=== PATIENT | female | born 1965 | race Caucasian/White ===

== ENCOUNTER 2018-04-27 00:08 | Emergency (ER) | payer MEDICARE ==
[~2018-04-27] VITALS: Ht 147.3 cm; Wt 42.0 kg
[~2018-04-27 00:08] MED LIST: PEPTO BISMOL
[2018-04-27] MEDS ORDERED: LEFL10TA15 PO (00:19)
[2018-04-27] MEDS ORDERED: OMEP20 PO (00:19)
[2018-04-27] MEDS ORDERED: LISI-660 PO (00:19)
[2018-04-27] MEDS ORDERED: FERR-89 PO (00:19)
[2018-04-27] MEDS ORDERED: CALC-1085 PO (00:19)
[2018-04-27] MEDS ORDERED: METF500T6 PO (00:19)
[2018-04-27] MEDS ORDERED: HYDR200T4 PO (00:19)
[2018-04-27 00:24] LABS: GLUCOSE,POINT OF CARE 78 MG/DL (70-110)
[2018-04-27 01:06] LABS: ANION GAP 11 mmol/L (8-16); BASOPHILS % (AUTO) 1.2 % (0.0-2.0); CALCIUM, TOTAL 9.4 mg/dL (8.8-10.5); CARBON DIOXIDE 24 mmol/L (22-29); CHLORIDE 104 mmol/L (98-107); CREATININE 0.67 mg/dL (0.60-1.30); EOSINOPHILS % (AUTO) 3.9 % (1.0-6.0); GLOMERULAR FILTR. RATE CALC > 60 mL/min (>60); GLUCOSE,RANDOM 91 mg/dL (70-110); HEMATOCRIT 30.7 % (36-46); HEMOGLOBIN 10.3 g/dL (12.0-16.0); LYMPHOCYTES # (AUTO) 1.4 K/uL (1.0-4.8); LYMPHOCYTES % (AUTO) 25.8 % (22.0-44.0); MEAN CORPUSCULAR HEMOGLOBIN 31.6 pg (26.0-34.0); MEAN CORPUSCULAR HGB CONC 33.4 G/dL (31.0-37.0); MEAN CORPUSCULAR VOLUME 95 fL (80-100); MONOCYTES # (AUTO) 0.7 K/uL (0.1-1.0); MONOCYTES % (AUTO) 11.8 % (2.0-9.0); NEUTROPHILS # (AUTO) 3.2 K/uL (1.8-7.7); NEUTROPHILS % (AUTO) 57.3 % (40.0-70.0); PLATELET COUNT (AUTO) 324 K/uL (150-450); POTASSIUM 4.1 mmol/L (3.5-5.1); RED BLOOD CELL COUNT(AUTO) 3.25 MIL/uL (4.00-5.20); RED CELL DISTRIBUTION WIDTH 12.4 % (11.5-14.5); SODIUM SERUM 139 mmol/L (136-145); UREA NITROGEN, BLOOD 11 mg/dL (7-18)
[2018-04-27 01:12] LABS: ALANINE AMINOTRANSFERASE 12 U/L (12-78); ALBUMIN 3.4 g/dL (3.4-5.0); ALKALINE PHOSPHATASE 63 U/L (46-116); ASPARTATE AMINOTRANSFERASE 15 U/L (15-37); BILIRUBIN,TOTAL 0.2 mg/dL (0.1-1.0); TOTAL PROTEIN, SERUM 8.2 g/dL (6.4-8.2)
[2018-04-27 01:17] LABS: PROTHROMBIN TIME 10.2 SEC (9.4-11.6)
[2018-04-27 03:06] LABS: HEMATOCRIT 27.3 % (36-46); HEMOGLOBIN 9.4 g/dL (12.0-16.0)
[2018-04-27 03:31] VITALS: BP 97/61
== END 2018-04-27 04:19 | disposition home or self-care (01) ==
LOC: EMS 00:09
DX: D64.9 Anemia, unspecified (principal); M19.90 Unspecified osteoarthritis, unspecified site; E11.9 Type 2 diabetes mellitus without complications; Z79.899 Other long term (current) drug therapy; Z79.84 Long term (current) use of oral hypoglycemic drugs
CPT/HCPCS: 85014; 85018; 86850; 86900; 86901; 99284

== ENCOUNTER → 2020-12-28 | Outpatient (CLI) | payer MEDICARE ==
[~2020-12-28] MED LIST changes: +BARIUM SULFATE 0.1% SUSPENSION 450 ML BOTTLE ONE; +CALC-1085 PO; +FERR-89 PO; +HYDR200T4 PO; +IOVERSOL 350 MG/ML 100 ML VIAL ONE; +LEFL10TA15 PO; +LISI-892 PO; +METF-960 PO; +OMEP20 PO; -PEPTO BISMOL; +SODIUM CHLORIDE 0.9% 100 ML ONE
== END | disposition home or self-care (01) ==
LOC: RADPV 14:39
PROVIDERS: ATTEND Podiatrist Foot & Ankle Surgery
DX: M20.41 Other hammer toe(s) (acquired), right foot (principal); M20.42 Other hammer toe(s) (acquired), left foot; R60.0 Localized edema; M77.32 Calcaneal spur, left foot; M12.871 Other specific arthropathies, not elsewhere classified, right ankle and foot; M85.871 Other specified disorders of bone density and structure, right ankle and foot; M85.872 Other specified disorders of bone density and structure, left ankle and foot

== ENCOUNTER 2021-07-20 05:41 | Day surgery (SDC) | payer MEDICARE ==
[~2021-07-20] VITALS: Ht 144.8 cm; Wt 40.9 kg
[~2021-07-20 05:41] MED LIST changes: -BARIUM SULFATE 0.1% SUSPENSION 450 ML BOTTLE ONE; +HYDR200T38 PO; -HYDR200T4 PO; -IOVERSOL 350 MG/ML 100 ML VIAL ONE; -LEFL10TA15 PO; +LEFL10TA19 PO; +METF-1211 PO; -METF-960 PO; +RINGERS SOLUTION,LACTATED 1,000 ML IV ONE; -SODIUM CHLORIDE 0.9% 100 ML ONE
[2021-07-20] MEDS ORDERED: FentaNYL CITRATE PF 100 MCG/2 ML VIAL IVP ONE (05:42)
[2021-07-20] MEDS ORDERED: 0.9% SODIUM CHLORIDE 10 ML VIAL IVP ONE (05:42)
[2021-07-20] MEDS ORDERED: KETAMINE HCL 50 MG/ML 10 ML VIAL IVP ONE (05:42)
[2021-07-20] MEDS ORDERED: ONDANSETRON HCL 4 MG/2 ML VIAL IVP ONE (05:42)
[2021-07-20] MEDS ORDERED: MIDAZOLAM HCL 2 MG/2 ML VIAL IVP ONE (05:42)
[2021-07-20] MEDS ORDERED: PROPOFOL 1% 20 ML VIAL IVP ONE (05:42)
[2021-07-20 06:04] LABS: COVID AG,FIA SOURCE NASOPHARYNGEAL
[2021-07-20 06:48] LABS: GLUCOMETER DEV NAME(LOC) SDS.; GLUCOSE,POINT OF CARE 89 MG/DL (70-110)
[2021-07-20] MEDS ORDERED: LIDOCAINE 1% 20 ML VIAL PERC ONE (07:00)
[2021-07-20] MEDS ORDERED: BUPIVACAINE HCL/PF 0.5% 30 ML VIAL PERC ONE (07:00)
[2021-07-20] MEDS ORDERED: HYDROmorphone 2 MG/ML VIAL IVP PRN (07:45)
[2021-07-20] MEDS ORDERED: FentaNYL CITRATE PF 100 MCG/2 ML VIAL IVP PRN (07:45)
[2021-07-20] MEDS ORDERED: MEPERIDINE-PF 25 MG/ML VIAL IVP PRN (07:45)
[2021-07-20] MEDS ORDERED: OXYGEN THERAPY IH SCH (08:00)
[2021-07-20] MEDS ORDERED: DEXAMETHASONE SOD PHOS 4 MG/ML VIAL IVP ONE (08:55)
== END 2021-07-20 10:12 | disposition home or self-care (01) ==
LOC: SURGERY 05:41
PROVIDERS: ATTEND Podiatrist Foot & Ankle Surgery
DX: M20.41 Other hammer toe(s) (acquired), right foot (principal); E11.9 Type 2 diabetes mellitus without complications; D64.9 Anemia, unspecified; Z79.899 Other long term (current) drug therapy; Z98.890 Other specified postprocedural states
CPT/HCPCS: 28285 ×4; 73630; 82962; 87426; C1713; C9803; J0690; J1100; J2250; J2405; J2704; J3010; J3490 ×3; J7120

== ENCOUNTER → 2021-10-11 | Outpatient (CLI) | payer MEDICARE ==
[~2021-10-11] MED LIST changes: -RINGERS SOLUTION,LACTATED 1,000 ML IV ONE
== END | disposition still patient (30) ==
LOC: RADPV 14:04
PROVIDERS: ATTEND Podiatrist Foot & Ankle Surgery
DX: S92.341A Displaced fracture of fourth metatarsal bone, right foot, initial encounter for closed fracture (principal); S92.351A Displaced fracture of fifth metatarsal bone, right foot, initial encounter for closed fracture; M20.42 Other hammer toe(s) (acquired), left foot; M19.071 Primary osteoarthritis, right ankle and foot; M19.072 Primary osteoarthritis, left ankle and foot; M25.474 Effusion, right foot; M77.31 Calcaneal spur, right foot; X58.XXXA Exposure to other specified factors, initial encounter; Y93.89 Activity, other specified; Y92.89 Other specified places as the place of occurrence of the external cause; Y99.8 Other external cause status

== ENCOUNTER 2022-03-25 18:55 | Inpatient (IN) | payer MEDICARE ==
[~2022-03-25] VITALS: Ht 142.2 cm; Wt 42.5 kg
[~2022-03-25 18:55] MED LIST changes: -FERR-89 PO; +FERR325T27 PO
[2022-03-25] MEDS ORDERED: SODIUM CHLORIDE 0.9% 1,000 ML IV ONE (19:30)
[2022-03-25] MEDS ORDERED: ONDANSETRON HCL 4 MG/2 ML VIAL IVP ONE ×2 (19:30→20:00)
[2022-03-25] MEDS: MORPHINE SULFATE 4 MG/ML SYRINGE IVP ONE ×2 (20:00→21:21)
[2022-03-25] MEDS ORDERED: SODIUM CHLORIDE 0.9% 1,200 ML IV ONE (20:00)
[2022-03-25 20:36] LABS: BASOPHILS % (AUTO) 0.1 % (0.0-2.0); EOSINOPHILS % (AUTO) 0.6 % (1.0-6.0); HEMATOCRIT 33.5 % (36-46); HEMOGLOBIN 11.5 g/dL (12.0-16.0); LYMPHOCYTES # (AUTO) 0.4 K/uL (1.0-4.8); LYMPHOCYTES % (AUTO) 3.7 % (22.0-44.0); MEAN CORPUSCULAR HEMOGLOBIN 32.7 pg (26.0-34.0); MEAN CORPUSCULAR HGB CONC 34.2 G/dL (31.0-37.0); MEAN CORPUSCULAR VOLUME 96 fL (80-100); MONOCYTES # (AUTO) 1.1 K/uL (0.1-1.0); NEUTROPHILS # (AUTO) 8.2 K/uL (1.8-7.7); NEUTROPHILS % (AUTO) 84.6 % (40.0-70.0); PLATELET COUNT (AUTO) 230 K/uL (150-450)
[2022-03-25 20:44] LABS: ANION GAP 12 mmol/L (8-16); CALCIUM, TOTAL 9.5 mg/dL (8.8-10.5); CARBON DIOXIDE 25 mmol/L (22-29); CHLORIDE 104 mmol/L (98-107); CREATININE 0.67 mg/dL (0.60-1.30); GLUCOSE,RANDOM 201 mg/dL (70-110); POTASSIUM 3.7 mmol/L (3.5-5.1); SODIUM SERUM 141 mmol/L (136-145); UREA NITROGEN, BLOOD 22 mg/dL (7-18)
[2022-03-25 20:45] LABS: GLOMERULAR FILTR. RATE CALC > 60 mL/min (>60)
[2022-03-25 20:49] LABS: COVID AG,FIA SOURCE NASOPHARYNGEAL
[2022-03-25 20:50] LABS: ALANINE AMINOTRANSFERASE 21 U/L (12-78); ALBUMIN 3.9 g/dL (3.4-5.0); ALKALINE PHOSPHATASE 54 U/L (46-116); ASPARTATE AMINOTRANSFERASE 14 U/L (15-37); BILIRUBIN,TOTAL 0.5 mg/dL (0.1-1.0); LIPASE 73 U/L (73-393); TOTAL PROTEIN, SERUM 8.2 g/dL (6.4-8.2)
[2022-03-25 20:54] LABS: LACTIC ACID 2.6 mmol/L (0.4-2.0)
[2022-03-25 21:08] LABS: INFLUENZA TYPE A NEGATIVE FOR TYPE A (NEGATIVE); INFLUENZA TYPE B NEGATIVE FOR TYPE B (NEGATIVE)
[2022-03-25] MEDS ORDERED: ONDANSETRON HCL 4 MG/2 ML VIAL IVP PRN (21:15)
[2022-03-25] MEDS ORDERED: ACETAMINOPHEN 325 MG TABLET PO PRN (21:15)
[2022-03-25] MEDS ORDERED: DIAZEPAM 5 MG/ML 2 ML SYRINGE IVP ONE (21:15)
[2022-03-25] MEDS ORDERED: MORPHINE SULFATE 2 MG/ML SYRINGE IVP PRN (21:15)
[2022-03-25] MEDS ORDERED: DEXTROSE 50%-WATER 25 GM/50 ML SYRINGE IVP PRN (21:45)
[2022-03-25] MEDS ORDERED: INSULIN GLARGINE,HUM.REC.ANLOG 100 UNITS/ML SQ SCH (21:45)
[2022-03-25] MEDS ORDERED: IOHEXOL 350 MG/ML 100 ML VIAL ONE (21:49)
[2022-03-25] MEDS ORDERED: SODIUM CHLORIDE 0.9% 100 ML ONE (21:49)
[2022-03-25 22:02] LABS: HEMOGLOBIN A1C 6.2 % (3.8-5.6)
[2022-03-26] MEDS: PIPERACILLIN/TAZO 3.375 GM/D5W 50 ML IV SCH ×3 (00:17→11:59)
[2022-03-26 00:32] LABS: APPEARANCE,URINE CLEAR (CLEAR); BILIRUBIN,URINE NEGATIVE (NEGATIVE); GLUCOSE, URINE (UA) NEGATIVE (NEGATIVE); KETONES,URINE TRACE mg/dL (NEGATIVE); LEUKOCYTE ESTERASE ,URINE NEGATIVE (NEGATIVE); NITRATE,URINE NEGATIVE (NEGATIVE); OCCULT BLOOD,URINE NEGATIVE (NEGATIVE); PH,URINE 7.5 (5.0-8.0); PROTEIN,URINE NEGATIVE (NEGATIVE); SPECIFIC GRAVITIY, URINE 1.028 (1.003-1.030); UROBILINOGEN,URINE <=1.0 mg/dL (<=1.0)
[2022-03-26 00:41] LABS: BACTERIA,URINE None Seen /HPF (None Seen); RBC,URINE None Seen /HPF (0-2); WBC,URINE None Seen /HPF (0-5)
[2022-03-26 00:58] VITALS: BP 108/58
[2022-03-26] MEDS: RINGERS SOLUTION,LACTATED 1,000 ML IV SCH ×2 (05:04→17:40)
[2022-03-26 05:09] VITALS: BP 108/67
[2022-03-26 07:05] VITALS: BP 110/59
[2022-03-26] MEDS ORDERED: FERROUS SULFATE 325 MG EC TABLET PO SCH (08:00)
[2022-03-26 08:37] LABS: GLUCOMETER DEV NAME(LOC) 5N.1C; GLUCOSE,POINT OF CARE 115 MG/DL (70-110)
[2022-03-26] MEDS ORDERED: HYDROXYCHLOROQUINE SULFATE 200 MG TABLET PO SCH (09:00)
[2022-03-26] MEDS ORDERED: OMEPRAZOLE 20 MG CAPSULE PO SCH (09:00)
[2022-03-26] MEDS ORDERED: LISINOPRIL 5 MG TABLET PO SCH (09:00)
[2022-03-26] MEDS ORDERED: LEFLUNOMIDE 10 MG TABLET PO SCH (09:00)
[2022-03-26 09:40] LABS: ANION GAP 10 mmol/L (8-16); CALCIUM, TOTAL 8.1 mg/dL (8.8-10.5); CARBON DIOXIDE 24 mmol/L (22-29); CHLORIDE 109 mmol/L (98-107); CREATININE 0.66 mg/dL (0.60-1.30); GLUCOSE,RANDOM 93 mg/dL (70-110); POTASSIUM 3.6 mmol/L (3.5-5.1); SODIUM SERUM 143 mmol/L (136-145); UREA NITROGEN, BLOOD 13 mg/dL (7-18)
[2022-03-26 09:44] LABS: GLOMERULAR FILTR. RATE CALC > 60 mL/min (>60)
[2022-03-26 11:12] VITALS: BP 122/77
[2022-03-26 11:46] LABS: GLUCOMETER DEV NAME(LOC) 5S.2B; GLUCOSE,POINT OF CARE 68 MG/DL (70-110)
[2022-03-26] MEDS ORDERED: DOXYCYCLINE HYCLATE 100 MG TABLET PO SCH (13:15)
[2022-03-26] MEDS: AZITHROMYCIN 500 MG TABLET PO SCH (14:47)
[2022-03-26 15:02] LABS: C-REACTIVE PROTEIN QUANT 6.94 mg/dL (0.00-0.30); FERRITIN 247 ng/mL (8-252)
[2022-03-26 15:39] VITALS: BP 118/68
[2022-03-26 17:46] LABS: GLUCOMETER DEV NAME(LOC) 5S.1B; GLUCOSE,POINT OF CARE 119 MG/DL (70-110)
[2022-03-26] MEDS ORDERED: CefTRIAXone 1 GM/DEXTROSE 50 ML IV SCH (18:00)
[2022-03-26] MEDS ORDERED: SODIUM CHLORIDE 0.9% 250 ML IV ONE (18:05)
[2022-03-26] MEDS: CefoTEtan DISOD 2 GM/DEXTROSE 50 ML IV SCH (18:10)
[2022-03-26 20:05] VITALS: BP 119/69
[2022-03-26] MEDS: INSULIN LISPRO 100 UNITS/ML SQ PRN (20:22)
[2022-03-26] MEDS: OMEPRAZOLE 20 MG CAPSULE PO SCH (20:23)
[2022-03-26] MEDS: CHOLECALCIFEROL (VIT D3) 400 UNITS [10 MCG] TABLET PO SCH (20:23)
[2022-03-26] MEDS: LATANOPROST 0.005% 2.5 ML OPHTHALMIC SOLUTION OS SCH (20:23)
[2022-03-26] MEDS: DORZOLAMIDE/TIMOLOL 2-0.5% [22.3-6.8MG/ML] 10 ML OPHTHALMIC SOLUTION OS SCH (20:23)
[2022-03-26] MEDS: CALCIUM CARBONATE 500 MG TABLET PO SCH (20:23)
[2022-03-26] MEDS: HEPARIN SODIUM,PORCINE 5,000 UNITS/ML VIAL SQ SCH (23:43)
[2022-03-27] VITALS (7 sets, daily range): BP systolic 111–142; BP diastolic 57–84
[2022-03-27] MEDS: RINGERS SOLUTION,LACTATED 1,000 ML IV SCH ×3 (07:00→21:00)
[2022-03-27] MEDS: HEPARIN SODIUM,PORCINE 5,000 UNITS/ML VIAL SQ SCH ×2 (08:00→16:00)
[2022-03-27] MEDS: CefoTEtan DISOD 2 GM/DEXTROSE 50 ML IV SCH ×2 (08:07→18:00)
[2022-03-27 08:16] LABS: GLUCOMETER DEV NAME(LOC) 5N.1C; GLUCOSE,POINT OF CARE 88 MG/DL (70-110)
[2022-03-27 08:16] LABS: GLUCOMETER DEV NAME(LOC) 5S.2B; GLUCOSE,POINT OF CARE 252 MG/DL (70-110)
[2022-03-27] MEDS: AZITHROMYCIN 500 MG TABLET PO SCH (09:00)
[2022-03-27] MEDS: OMEPRAZOLE 20 MG CAPSULE PO SCH ×2 (09:00→21:02)
[2022-03-27] MEDS: PredniSONE 5 MG TABLET PO SCH (09:00)
[2022-03-27] MEDS: DORZOLAMIDE/TIMOLOL 2-0.5% [22.3-6.8MG/ML] 10 ML OPHTHALMIC SOLUTION OS SCH ×2 (09:00→21:00)
[2022-03-27] MEDS: CALCIUM CARBONATE 500 MG TABLET PO SCH ×2 (09:00→21:02)
[2022-03-27] MEDS: CHOLECALCIFEROL (VIT D3) 400 UNITS [10 MCG] TABLET PO SCH ×2 (09:00→21:02)
[2022-03-27] MEDS: FOLIC ACID 1 MG TABLET PO SCH (09:00)
[2022-03-27 11:21] LABS: GLUCOMETER DEV NAME(LOC) 5S.1B; GLUCOSE,POINT OF CARE 173 MG/DL (70-110)
[2022-03-27] MEDS: INSULIN LISPRO 100 UNITS/ML SQ PRN ×2 (12:21→20:57)
[2022-03-27 17:31] LABS: GLUCOMETER DEV NAME(LOC) 5N.3; GLUCOSE,POINT OF CARE 122 MG/DL (70-110)
[2022-03-27 17:46] LABS: GLUCOMETER DEV NAME(LOC) 5S.2B; GLUCOSE,POINT OF CARE 174 MG/DL (70-110)
[2022-03-27] MEDS: LATANOPROST 0.005% 2.5 ML OPHTHALMIC SOLUTION OS SCH (21:00)
[2022-03-27 22:26] LABS: GLUCOMETER DEV NAME(LOC) 5N.1C; GLUCOSE,POINT OF CARE 77 MG/DL (70-110)
[2022-03-28] MEDS: HEPARIN SODIUM,PORCINE 5,000 UNITS/ML VIAL SQ SCH ×3 (01:15→16:13)
[2022-03-28 04:35] VITALS: BP 132/71
[2022-03-28] MEDS: CefoTEtan DISOD 2 GM/DEXTROSE 50 ML IV SCH (06:00)
[2022-03-28] MEDS: RINGERS SOLUTION,LACTATED 1,000 ML IV SCH ×3 (06:07→23:52)
[2022-03-28 08:33] VITALS: BP 134/72
[2022-03-28] MEDS: FOLIC ACID 1 MG TABLET PO SCH (08:56)
[2022-03-28] MEDS: AZITHROMYCIN 500 MG TABLET PO SCH (08:57)
[2022-03-28] MEDS: CALCIUM CARBONATE 500 MG TABLET PO SCH ×2 (08:57→20:15)
[2022-03-28] MEDS: OMEPRAZOLE 20 MG CAPSULE PO SCH ×2 (08:57→20:15)
[2022-03-28] MEDS: CHOLECALCIFEROL (VIT D3) 400 UNITS [10 MCG] TABLET PO SCH ×2 (08:57→20:15)
[2022-03-28] MEDS: PredniSONE 5 MG TABLET PO SCH (08:57)
[2022-03-28] MEDS: DORZOLAMIDE/TIMOLOL 2-0.5% [22.3-6.8MG/ML] 10 ML OPHTHALMIC SOLUTION OS SCH ×2 (09:45→20:16)
[2022-03-28 11:27] VITALS: BP 127/102
[2022-03-28] MEDS: INSULIN LISPRO 100 UNITS/ML SQ PRN ×2 (11:29→20:36)
[2022-03-28 14:20] LABS: BASOPHILS % (AUTO) 0.3 % (0.0-2.0); EOSINOPHILS % (AUTO) 1.7 % (1.0-6.0); HEMATOCRIT 31.1 % (36-46); HEMOGLOBIN 10.5 g/dL (12.0-16.0); LYMPHOCYTES # (AUTO) 0.4 K/uL (1.0-4.8); LYMPHOCYTES % (AUTO) 9.2 % (22.0-44.0); MEAN CORPUSCULAR HGB CONC 33.9 G/dL (31.0-37.0); MEAN CORPUSCULAR VOLUME 97 fL (80-100); MONOCYTES # (AUTO) 0.3 K/uL (0.1-1.0); MONOCYTES % (AUTO) 6.7 % (2.0-9.0); NEUTROPHILS # (AUTO) 3.2 K/uL (1.8-7.7); NEUTROPHILS % (AUTO) 82.1 % (40.0-70.0); PLATELET COUNT (AUTO) 222 K/uL (150-450); RED BLOOD CELL COUNT(AUTO) 3.19 MIL/uL (4.00-5.20); RED CELL DISTRIBUTION WIDTH 14.5 % (11.5-14.5)
[2022-03-28 14:39] LABS: ALANINE AMINOTRANSFERASE 22 U/L (12-78); ALBUMIN 3.2 g/dL (3.4-5.0); ALKALINE PHOSPHATASE 55 U/L (46-116); ANION GAP 11 mmol/L (8-16); ASPARTATE AMINOTRANSFERASE 15 U/L (15-37); BILIRUBIN,TOTAL 0.2 mg/dL (0.1-1.0); C-REACTIVE PROTEIN QUANT 1.98 mg/dL (0.00-0.30); CARBON DIOXIDE 24 mmol/L (22-29); CHLORIDE 107 mmol/L (98-107); CREATINE KINASE, TOTAL ONLY 39 U/L (26-192); CREATININE 0.54 mg/dL (0.60-1.30); GLUCOSE,RANDOM 195 mg/dL (70-110); SODIUM SERUM 142 mmol/L (136-145); TOTAL PROTEIN, SERUM 7.6 g/dL (6.4-8.2); UREA NITROGEN, BLOOD 11 mg/dL (7-18)
[2022-03-28 14:43] LABS: GLOMERULAR FILTR. RATE CALC > 60 mL/min (>60)
[2022-03-28 15:59] VITALS: BP 141/92
[2022-03-28 19:16] LABS: GLUCOMETER DEV NAME(LOC) 5S.2B; GLUCOSE,POINT OF CARE 103 MG/DL (70-110)
[2022-03-28 19:16] LABS: GLUCOMETER DEV NAME(LOC) 5S.2B; GLUCOSE,POINT OF CARE 238 MG/DL (70-110)
[2022-03-28 19:16] LABS: GLUCOMETER DEV NAME(LOC) 5S.2B; GLUCOSE,POINT OF CARE 190 MG/DL (70-110)
[2022-03-28] MEDS: LATANOPROST 0.005% 2.5 ML OPHTHALMIC SOLUTION OS SCH (20:16)
[2022-03-28 20:34] VITALS: BP 142/79
[2022-03-28 23:43] VITALS: BP 140/75
[2022-03-29] MEDS: HEPARIN SODIUM,PORCINE 5,000 UNITS/ML VIAL SQ SCH ×4 (01:07→15:48)
[2022-03-29 04:45] VITALS: BP 135/77
[2022-03-29 06:01] LABS: GLUCOMETER DEV NAME(LOC) 5N.1C; GLUCOSE,POINT OF CARE 228 MG/DL (70-110)
[2022-03-29 06:01] LABS: GLUCOMETER DEV NAME(LOC) 5N.1C; GLUCOSE,POINT OF CARE 86 MG/DL (70-110)
[2022-03-29 06:22] LABS: GLUCOMETER DEV NAME(LOC) 5N.3; GLUCOSE,POINT OF CARE 101 MG/DL (70-110)
[2022-03-29] MEDS: FOLIC ACID 1 MG TABLET PO SCH (07:56)
[2022-03-29] MEDS: CHOLECALCIFEROL (VIT D3) 400 UNITS [10 MCG] TABLET PO SCH ×2 (07:56→20:05)
[2022-03-29] MEDS: OMEPRAZOLE 20 MG CAPSULE PO SCH ×2 (07:56→20:03)
[2022-03-29] MEDS: PredniSONE 5 MG TABLET PO SCH (07:56)
[2022-03-29] MEDS: CALCIUM CARBONATE 500 MG TABLET PO SCH ×2 (07:56→20:04)
[2022-03-29] MEDS: AZITHROMYCIN 500 MG TABLET PO SCH (07:56)
[2022-03-29] MEDS: DORZOLAMIDE/TIMOLOL 2-0.5% [22.3-6.8MG/ML] 10 ML OPHTHALMIC SOLUTION OS SCH ×2 (07:57→20:05)
[2022-03-29 08:00] VITALS: BP 147/98
[2022-03-29 11:45] VITALS: BP 117/71
[2022-03-29] MEDS: RINGERS SOLUTION,LACTATED 1,000 ML IV SCH ×2 (11:46→23:00)
[2022-03-29 15:06] LABS: GLUCOMETER DEV NAME(LOC) 5S.2B; GLUCOSE,POINT OF CARE 170 MG/DL (70-110)
[2022-03-29] MEDS: MetroNIDAZOLE 500 MG TABLET PO SCH ×2 (15:47→20:03)
[2022-03-29 16:00] VITALS: BP 124/77
[2022-03-29] MEDS: INSULIN LISPRO 100 UNITS/ML SQ PRN (17:28)
[2022-03-29 19:27] VITALS: BP 118/73
[2022-03-29] MEDS: LATANOPROST 0.005% 2.5 ML OPHTHALMIC SOLUTION OS SCH (20:06)
[2022-03-29 22:01] LABS: GLUCOMETER DEV NAME(LOC) 5S.2B; GLUCOSE,POINT OF CARE 198 MG/DL (70-110)
[2022-03-29 23:55] VITALS: BP 103/54
[2022-03-30] MEDS: HEPARIN SODIUM,PORCINE 5,000 UNITS/ML VIAL SQ SCH ×4 (00:04→16:12)
[2022-03-30 04:18] VITALS: BP 118/48
[2022-03-30 06:31] LABS: GLUCOMETER DEV NAME(LOC) 5S.1B; GLUCOSE,POINT OF CARE 100 MG/DL (70-110)
[2022-03-30 07:35] VITALS: BP 104/61
[2022-03-30] MEDS: RINGERS SOLUTION,LACTATED 1,000 ML IV SCH ×2 (08:52→17:56)
[2022-03-30] MEDS: DORZOLAMIDE/TIMOLOL 2-0.5% [22.3-6.8MG/ML] 10 ML OPHTHALMIC SOLUTION OS SCH ×2 (08:52→21:20)
[2022-03-30] MEDS: MetroNIDAZOLE 500 MG TABLET PO SCH ×3 (08:53→21:12)
[2022-03-30] MEDS: AZITHROMYCIN 500 MG TABLET PO SCH (08:53)
[2022-03-30] MEDS: OMEPRAZOLE 20 MG CAPSULE PO SCH ×2 (08:53→21:11)
[2022-03-30] MEDS: PredniSONE 5 MG TABLET PO SCH (08:53)
[2022-03-30] MEDS: FOLIC ACID 1 MG TABLET PO SCH (08:53)
[2022-03-30] MEDS: CALCIUM CARBONATE 500 MG TABLET PO SCH ×2 (08:53→21:12)
[2022-03-30] MEDS: CHOLECALCIFEROL (VIT D3) 400 UNITS [10 MCG] TABLET PO SCH ×2 (08:53→21:12)
[2022-03-30 11:07] VITALS: BP 114/69
[2022-03-30] MEDS: INSULIN LISPRO 100 UNITS/ML SQ PRN (12:19)
[2022-03-30 14:47] LABS: GLUCOMETER DEV NAME(LOC) 5N.1C; GLUCOSE,POINT OF CARE 225 MG/DL (70-110)
[2022-03-30 16:05] VITALS: BP 121/76
[2022-03-30] MEDS: LATANOPROST 0.005% 2.5 ML OPHTHALMIC SOLUTION OS SCH (21:20)
[2022-03-31] MEDS: HEPARIN SODIUM,PORCINE 5,000 UNITS/ML VIAL SQ SCH ×3 (00:59→08:18)
[2022-03-31] MEDS: FOLIC ACID 1 MG TABLET PO SCH (08:16)
[2022-03-31] MEDS: CALCIUM CARBONATE 500 MG TABLET PO SCH (08:17)
[2022-03-31] MEDS: OMEPRAZOLE 20 MG CAPSULE PO SCH (08:17)
[2022-03-31] MEDS: CHOLECALCIFEROL (VIT D3) 400 UNITS [10 MCG] TABLET PO SCH (08:17)
[2022-03-31] MEDS: PredniSONE 5 MG TABLET PO SCH (08:18)
[2022-03-31] MEDS: MetroNIDAZOLE 500 MG TABLET PO SCH (08:18)
[2022-03-31] MEDS: DORZOLAMIDE/TIMOLOL 2-0.5% [22.3-6.8MG/ML] 10 ML OPHTHALMIC SOLUTION OS SCH (08:19)
[2022-03-31] MEDS: AZITHROMYCIN 500 MG TABLET PO SCH (08:19)
[2022-03-31] MEDS ORDERED: CloNIDine HCL 0.1 MG TABLET PO ONE (11:45)
[2022-04-01] MEDS ORDERED: METHOTREXATE SODIUM 2.5 MG TABLET PO SCH (09:00)
== END 2022-03-31 12:00 | disposition home or self-care (01) | DRG 871 ==
LOC: EMS 18:55 → 5S 21:59
PROVIDERS: ADMIT Internal Medicine; ATTEND Internal Medicine
DX: A41.9 Sepsis, unspecified organism (principal); J18.9 Pneumonia, unspecified organism; N39.0 Urinary tract infection, site not specified; K52.9 Noninfective gastroenteritis and colitis, unspecified; K80.20 Calculus of gallbladder without cholecystitis without obstruction; Z20.822 Contact with and (suspected) exposure to COVID-19; D64.9 Anemia, unspecified; H40.9 Unspecified glaucoma; E11.9 Type 2 diabetes mellitus without complications; M06.9 Rheumatoid arthritis, unspecified; I10 Essential (primary) hypertension; M19.90 Unspecified osteoarthritis, unspecified site; K57.90 Diverticulosis of intestine, part unspecified, without perforation or abscess without bleeding; Z53.20 Procedure and treatment not carried out because of patient's decision for unspecified reasons; Z79.899 Other long term (current) drug therapy; Z91.19 Patient's noncompliance with other medical treatment and regimen
CPT/HCPCS: 71045; 74177; 76705; 80048; 80053; 81001; 82550; 82728; 82962; 83036; 83605; 83690; 84145; 84484; 84703; 85025; 85379; 86140; 86738; 87040; 87045; 87804; 93005; 97162; 97165; 97166; 97535; 99291; J0696; J1644; J1815; J2270; J2405; J2543; J3490; J7030; J7050; J7120; J8610; Q9967; 36415-L1; 36415-TC; U0003

== ENCOUNTER 2022-04-03 07:38 | Emergency (ER) | payer MEDICARE ==
[~2022-04-03] VITALS: Ht 149.9 cm; Wt 40.0 kg
[~2022-04-03 07:38] MED LIST changes: -FERR325T27 PO; -LEFL10TA19 PO; -LISI-892 PO; -METF-1211 PO
[2022-04-03] MEDS ORDERED: METF-1211 PO (07:59)
[2022-04-03] MEDS ORDERED: FOLI0.4T6 PO (07:59)
[2022-04-03 08:06] LABS: GLUCOMETER DEV NAME(LOC) ERT.5; GLUCOSE,POINT OF CARE 215 MG/DL (70-110)
[2022-04-03] MEDS ORDERED: PB/HYOSCY/ATR/SCOP/LIDO/MAALOX 55 ML BOTTLE PO ONE (09:00)
[2022-04-03 09:01] LABS: BASOPHILS % (AUTO) 0.4 % (0.0-2.0); EOSINOPHILS % (AUTO) 0.4 % (1.0-6.0); HEMATOCRIT 36.9 % (36-46); HEMOGLOBIN 12.4 g/dL (12.0-16.0); LYMPHOCYTES # (AUTO) 0.3 K/uL (1.0-4.8); LYMPHOCYTES % (AUTO) 3.5 % (22.0-44.0); MEAN CORPUSCULAR HEMOGLOBIN 32.4 pg (26.0-34.0); MEAN CORPUSCULAR HGB CONC 33.6 G/dL (31.0-37.0); MEAN CORPUSCULAR VOLUME 96 fL (80-100); MONOCYTES # (AUTO) 0.4 K/uL (0.1-1.0); MONOCYTES % (AUTO) 4.7 % (2.0-9.0); NEUTROPHILS # (AUTO) 6.9 K/uL (1.8-7.7); PLATELET COUNT (AUTO) 292 K/uL (150-450); RED BLOOD CELL COUNT(AUTO) 3.83 MIL/uL (4.00-5.20)
[2022-04-03 09:13] LABS: INR 1.1 (0.9-1.1); PROTHROMBIN TIME 11.5 SEC (9.4-11.6)
[2022-04-03 09:15] LABS: ANION GAP 14 mmol/L (8-16); CALCIUM, TOTAL 10.2 mg/dL (8.8-10.5); CARBON DIOXIDE 23 mmol/L (22-29); CHLORIDE 101 mmol/L (98-107); CREATININE 0.73 mg/dL (0.60-1.30); GLUCOSE,RANDOM 218 mg/dL (70-110); POTASSIUM 4.3 mmol/L (3.5-5.1); SODIUM SERUM 138 mmol/L (136-145); UREA NITROGEN, BLOOD 20 mg/dL (7-18)
[2022-04-03 09:19] LABS: GLOMERULAR FILTR. RATE CALC > 60 mL/min (>60)
[2022-04-03 09:21] LABS: ALANINE AMINOTRANSFERASE 74 U/L (12-78); ALBUMIN 3.9 g/dL (3.4-5.0); ALKALINE PHOSPHATASE 56 U/L (46-116); ASPARTATE AMINOTRANSFERASE 40 U/L (15-37); BILIRUBIN,TOTAL 0.5 mg/dL (0.1-1.0); LIPASE 111 U/L (73-393); TOTAL PROTEIN, SERUM 8.4 g/dL (6.4-8.2)
[2022-04-03] MEDS ORDERED: IOHEXOL 350 MG/ML 100 ML VIAL ONE ×2 (10:07→10:37)
[2022-04-03] MEDS ORDERED: SODIUM CHLORIDE 0.9% 100 ML ONE ×2 (10:07→10:37)
[2022-04-03 19:30] VITALS: BP 129/75
== END 2022-04-03 21:19 | disposition home or self-care (01) ==
LOC: EMS 07:38
DX: R10.84 Generalized abdominal pain (principal); E11.9 Type 2 diabetes mellitus without complications; Z79.84 Long term (current) use of oral hypoglycemic drugs; Z79.899 Other long term (current) drug therapy
CPT/HCPCS: 99285; 74177; 80053; 82962; 83690; 85025; 85610; 85730; 36415; 93005; Q9967; J7050

== ENCOUNTER 2024-05-03 21:53 | Inpatient (IN) | payer MEDICARE, MEDICAID ==
[~2024-05-03] VITALS: Ht 142.2 cm; Wt 52.6 kg
[~2024-05-03 21:53] MED LIST changes: +FOLI0.4T6 PO; +METF-1211 PO
[2024-05-04] MEDS: TraMADol HCL 50 MG TABLET PO ONE (00:12)
[2024-05-04] MEDS ORDERED: MAGNESIUM HYDROXIDE SUSPENSION 30 ML UDCUP PO PRN (00:15)
[2024-05-04] MEDS ORDERED: DEXTROSE 50%-WATER 25 GM/50 ML SYRINGE IVP PRN (00:15)
[2024-05-04 00:34] LABS: BASOPHILS % (AUTO) 0.4 % (0.0-2.0); EOSINOPHILS % (AUTO) 0.1 % (1.0-6.0); HEMATOCRIT 30.5 % (36-46); HEMOGLOBIN 10.2 g/dL (12.0-16.0); LYMPHOCYTES # (AUTO) 0.3 K/uL (1.0-4.8); LYMPHOCYTES % (AUTO) 4.1 % (22.0-44.0); MEAN CORPUSCULAR HEMOGLOBIN 32.5 pg (26.0-34.0); MEAN CORPUSCULAR HGB CONC 33.6 G/dL (31.0-37.0); MEAN CORPUSCULAR VOLUME 97 fL (80-100); MONOCYTES # (AUTO) 0.6 K/uL (0.1-1.0); MONOCYTES % (AUTO) 7.3 % (2.0-9.0); NEUTROPHILS # (AUTO) 7.5 K/uL (1.8-7.7); PLATELET COUNT (AUTO) 221 K/uL (150-450); RED BLOOD CELL COUNT(AUTO) 3.15 MIL/uL (4.00-5.20); RED CELL DISTRIBUTION WIDTH 14.1 % (11.5-14.5); WHITE BLOOD COUNT (AUTO) 8.5 K/uL (4.5-11.0)
[2024-05-04] MEDS: SODIUM CHLORIDE 0.9% 1,000 ML IV ONE ×2 (00:36→00:44)
[2024-05-04 00:44] LABS: NEUTROPHILS % (AUTO) 88.1 % (40.0-70.0)
[2024-05-04 00:45] LABS: ANION GAP 16 mmol/L (8-16); CARBON DIOXIDE 23 mmol/L (22-29); CHLORIDE 99 mmol/L (98-107); GLOMERULAR FILTR. RATE CALC > 60 mL/min (>60); GLUCOSE,RANDOM 253 mg/dL (70-110); POTASSIUM 4.5 mmol/L (3.5-5.1); SODIUM SERUM 138 mmol/L (136-145); UREA NITROGEN, BLOOD 14 mg/dL (7-18)
[2024-05-04 01:04] LABS: PROTHROMBIN TIME 10.7 SEC (9.4-11.6)
[2024-05-04 01:16] LABS: APPEARANCE,URINE CLEAR (CLEAR); BILIRUBIN,URINE NEGATIVE (NEGATIVE); COLOR,URINE LIGHT YELLOW (YELLOW); GLUCOSE, URINE (UA) >=1000 mg/dL (NEGATIVE); KETONES,URINE TRACE mg/dL (NEGATIVE); LEUKOCYTE ESTERASE ,URINE NEGATIVE (NEGATIVE); NITRATE,URINE NEGATIVE (NEGATIVE); OCCULT BLOOD,URINE NEGATIVE (NEGATIVE); PROTEIN,URINE NEGATIVE (NEGATIVE); SPECIFIC GRAVITIY, URINE 1.018 (1.003-1.030); UROBILINOGEN,URINE <=1.0 mg/dL (<=1.0)
[2024-05-04 02:04] LABS: RBC,URINE None Seen /HPF (0-2); WBC,URINE None Seen /HPF (0-5)
[2024-05-04 02:05] LABS: BACTERIA,URINE None Seen /HPF (None Seen); SQUAMOUS EPITHELIAL CELL,UR Few /LPF (None Seen)
[2024-05-04 02:18] VITALS: BP 154/89; PULSE 84; RESP 20; TEMP 98.6; O2SAT 99
[2024-05-04] MEDS: MORPHINE SULFATE 2 MG/ML SYRINGE IVP PRN (02:26)
[2024-05-04 04:26] VITALS: BP 139/76; PULSE 83; RESP 18; TEMP 99.1; O2SAT 96
[2024-05-04 06:25] LABS: GLUCOMETER DEV NAME(LOC) 6S.2; GLUCOSE,POINT OF CARE 199 MG/DL (70-110)
[2024-05-04 08:00] VITALS: BP 136/80; PULSE 81; RESP 18; TEMP 99; O2SAT 96
[2024-05-04] MEDS: DOCUSATE SODIUM 100 MG CAPSULE PO SCH (08:14)
[2024-05-04] MEDS: PANTOPRAZOLE SODIUM 40 MG/VIAL IVP SCH (08:34)
[2024-05-04] MEDS: HEPARIN SODIUM,PORCINE 5,000 UNITS/ML VIAL SQ SCH (08:34)
[2024-05-04] MEDS ORDERED: CeFAZolin SODIUM 1 GM VIAL IVP ONE (12:00)
[2024-05-04] MEDS ORDERED: TRANEXAMIC ACID 1,000 MG/10 ML VIAL IVP ONE (12:00)
[2024-05-04] MEDS ORDERED: LIDOCAINE/PF 2% 5 ML VIAL IM ONE (12:00)
[2024-05-04] MEDS ORDERED: ONDANSETRON HCL 4 MG/2 ML VIAL IVP ONE (12:00)
[2024-05-04] MEDS ORDERED: PROPOFOL 1% 20 ML VIAL IVP ONE (12:00)
[2024-05-04 15:08] VITALS: BP 134/75; PULSE 86; RESP 18; TEMP 99.1; O2SAT 94
[2024-05-04] MEDS: INSULIN LISPRO 100 UNITS/ML SQ PRN (18:12)
[2024-05-04 20:16] VITALS: BP 144/77; PULSE 84; RESP 20; TEMP 99.1; O2SAT 98
[2024-05-04] MEDS: ACETAMINOPHEN 325 MG TABLET PO PRN (23:13)
[2024-05-05 03:18] VITALS: BP 157/87; PULSE 85; RESP 18; TEMP 98.4; O2SAT 97
[2024-05-05 08:00] VITALS: BP 131/82; PULSE 82; RESP 18; TEMP 98; O2SAT 97
[2024-05-05] MEDS: MORPHINE SULFATE 2 MG/ML SYRINGE IVP PRN (11:26)
[2024-05-05 19:40] LABS: GLUCOMETER DEV NAME(LOC) 6S.2; GLUCOSE,POINT OF CARE 178 MG/DL (70-110)
[2024-05-05 19:40] LABS: GLUCOMETER DEV NAME(LOC) 6S.2; GLUCOSE,POINT OF CARE 240 MG/DL (70-110)
[2024-05-05 19:40] LABS: GLUCOMETER DEV NAME(LOC) 6S.2; GLUCOSE,POINT OF CARE 203 MG/DL (70-110)
[2024-05-05 19:40] LABS: GLUCOMETER DEV NAME(LOC) 6S.2; GLUCOSE,POINT OF CARE 173 MG/DL (70-110)
[2024-05-05 19:40] LABS: GLUCOMETER DEV NAME(LOC) 6S.2; GLUCOSE,POINT OF CARE 127 MG/DL (70-110)
[2024-05-05 20:16] VITALS: BP 129/80; PULSE 90; RESP 20; TEMP 98.7; O2SAT 95
[2024-05-05] MEDS: SODIUM CHLORIDE 0.9% 1,000 ML IV ONE (22:02)
[2024-05-06 00:05] VITALS: BP 132/75; PULSE 83; RESP 18; TEMP 98; O2SAT 98
[2024-05-06 03:13] VITALS: BP 144/87; PULSE 90; RESP 18; TEMP 98.1; O2SAT 99
[2024-05-06 03:56] LABS: GLUCOMETER DEV NAME(LOC) 6S.2; GLUCOSE,POINT OF CARE 193 MG/DL (70-110)
[2024-05-06] MEDS ORDERED: PERID15L MM (04:19)
[2024-05-06] MEDS ORDERED: FERR325T27 PO (04:19)
[2024-05-06] MEDS ORDERED: PRED5SOL PO (04:19)
[2024-05-06] MEDS ORDERED: ALEN70TA65 PO (04:19)
[2024-05-06] MEDS ORDERED: CYAN500T56 PO (04:19)
[2024-05-06] MEDS ORDERED: DOCU50LI40 PO (04:19)
[2024-05-06] MEDS ORDERED: RISP-31 PO (04:19)
[2024-05-06] MEDS ORDERED: METF-1211 PO (04:19)
[2024-05-06] MEDS ORDERED: METH2.5T47 PO (04:19)
[2024-05-06] MEDS ORDERED: OMEG-12 PO (04:19)
[2024-05-06] MEDS ORDERED: RIVA2.5T3 PO (04:19)
[2024-05-06 06:51] LABS: GLUCOMETER DEV NAME(LOC) 6S.2; GLUCOSE,POINT OF CARE 131 MG/DL (70-110)
[2024-05-06 08:04] VITALS: BP 140/82; PULSE 83; RESP 19; TEMP 98.5; O2SAT 97
[2024-05-06] MEDS ORDERED: SODIUM CHLORIDE 0.9% 500 ML IV ONE (11:36)
[2024-05-06] MEDS ORDERED: KETAMINE HCL 50 MG/ML 10 ML VIAL IVP ONE (12:00)
[2024-05-06] MEDS ORDERED: FentaNYL CITRATE PF 100 MCG/2 ML VIAL IVP ONE (12:00)
[2024-05-06] MEDS ORDERED: DOCU-385 PO (12:53)
[2024-05-06] MEDS ORDERED: FOLI-130 PO (12:53)
[2024-05-06] MEDS ORDERED: PRED-549 PO (12:53)
[2024-05-06] MEDS ORDERED: RINGERS SOLUTION,LACTATED 1,000 ML IV ONE (12:56)
[2024-05-06] MEDS: CHLORHEXIDINE GLUCONATE 2% TOWELETTE [2'S/6'S] TP ONE (13:39)
[2024-05-06] MEDS: ETHYL ALCOHOL 62% ANTISEPTIC NASAL SANITIZER 0.6 ML AMPUL NASAL ONE (13:39)
[2024-05-06] MEDS: RINGERS SOLUTION,LACTATED 1,000 ML IV ONE (13:58)
[2024-05-06 15:01] LABS: GLUCOMETER DEV NAME(LOC) 6S.2; GLUCOSE,POINT OF CARE 134 MG/DL (70-110)
[2024-05-06] MEDS ORDERED: VANCOMYCIN HCL 1 GM VIAL ONE (15:18)
[2024-05-06] MEDS ORDERED: SODIUM CL IRRIG SOLN BAG 3,000 ML IRRIG ONE (15:46)
[2024-05-06] MEDS ORDERED: MUPIROCIN CALCIUM 2% 22 GM OINTMENT ONE (15:46)
[2024-05-06] MEDS ORDERED: TRANEXAMIC ACID 1,000 MG/10 ML VIAL ONE (15:47)
[2024-05-06] MEDS ORDERED: FentaNYL CITRATE PF 100 MCG/2 ML VIAL IVP PRN (17:00)
[2024-05-06] MEDS: BUPIVACAINE LIPOSOME/PF 1.3%-13.3MG/ML SUSP 20 ML VIAL INJ ONE (17:23)
[2024-05-06] MEDS: BUPIVACAINE HCL/PF 0.25% 30 ML VIAL ONE (17:23)
[2024-05-06 19:45] LABS: GLUCOMETER DEV NAME(LOC) 6S.2; GLUCOSE,POINT OF CARE 174 MG/DL (70-110)
[2024-05-06 20:00] VITALS: BP 143/88; PULSE 96; RESP 18; TEMP 97.5; O2SAT 97
[2024-05-06] MEDS: ONDANSETRON HCL 4 MG/2 ML VIAL IVP PRN (20:10)
[2024-05-06 23:35] LABS: GLUCOMETER DEV NAME(LOC) 6S.2; GLUCOSE,POINT OF CARE 169 MG/DL (70-110)
[2024-05-07 04:36] VITALS: BP 142/77; PULSE 96; RESP 19; TEMP 97.8; O2SAT 98
[2024-05-07 07:00] LABS: GLUCOMETER DEV NAME(LOC) 6S.2; GLUCOSE,POINT OF CARE 204 MG/DL (70-110)
[2024-05-07 07:10] VITALS: BP 158/88; PULSE 97; RESP 18; TEMP 97.8; O2SAT 97
[2024-05-07] MEDS: OXYGEN THERAPY IH SCH (08:00)
[2024-05-07 09:15] VITALS: BP 122/71; PULSE 87; RESP 17; TEMP 98.7; O2SAT 94
[2024-05-07] MEDS: ETHYL ALCOHOL 62% ANTISEPTIC NASAL SANITIZER 0.6 ML AMPUL NASAL SCH (10:20)
[2024-05-07 15:16] LABS: GLUCOMETER DEV NAME(LOC) 6S.2; GLUCOSE,POINT OF CARE 201 MG/DL (70-110)
[2024-05-07 16:11] VITALS: BP 111/65; PULSE 79; RESP 19; TEMP 98.1; O2SAT 98
[2024-05-07 17:51] LABS: GLUCOMETER DEV NAME(LOC) 6S.2; GLUCOSE,POINT OF CARE 165 MG/DL (70-110)
[2024-05-07 20:15] VITALS: BP 126/75; PULSE 91; RESP 18; TEMP 98.4; O2SAT 95
[2024-05-08 03:16] LABS: GLUCOMETER DEV NAME(LOC) 6S.2; GLUCOSE,POINT OF CARE 140 MG/DL (70-110)
[2024-05-08 04:53] VITALS: BP 121/70; PULSE 86; RESP 18; TEMP 98.5; O2SAT 97
[2024-05-08 07:00] LABS: GLUCOMETER DEV NAME(LOC) 6S.2; GLUCOSE,POINT OF CARE 137 MG/DL (70-110)
[2024-05-08 12:46] LABS: GLUCOMETER DEV NAME(LOC) 6S.2; GLUCOSE,POINT OF CARE 308 MG/DL (70-110)
[2024-05-08] MEDS ORDERED: PANT-31 PO (15:55)
[2024-05-08] MEDS ORDERED: INSU100V SQ (16:03)
[2024-05-08] MEDS ORDERED: PERCT PO (16:04)
[2024-05-08] MEDS ORDERED: ENOX30SY19 SQ (16:04)
[2024-05-08 17:51] LABS: GLUCOMETER DEV NAME(LOC) 6S.2; GLUCOSE,POINT OF CARE 200 MG/DL (70-110)
== END 2024-05-08 19:25 | DRG 522 ==
LOC: EMS 21:53 → EDH 05-04 00:54 → 6S 05-04 01:37
PROVIDERS: ADMIT Internal Medicine; ATTEND Internal Medicine
PROC: 0SRS019 Replacement of Left Hip Joint, Femoral Surface with Metal Synthetic Substitute, Cemented, Open Approach (ICD-10-PCS; principal; 2024-05-06 15:30)
DX: M80.052A Age-related osteoporosis with current pathological fracture, left femur, initial encounter for fracture (principal); D64.9 Anemia, unspecified; E11.9 Type 2 diabetes mellitus without complications; R62.50 Unspecified lack of expected normal physiological development in childhood; Z83.3 Family history of diabetes mellitus; W18.39XA Other fall on same level, initial encounter; Y93.89 Activity, other specified; Y92.89 Other specified places as the place of occurrence of the external cause; Y99.8 Other external cause status; M06.9 Rheumatoid arthritis, unspecified
CPT/HCPCS: 70450; 73503; 73521; 73700; 80048; 81001; 81003; 82962; 85025; 85610; 85730; 86850; 86900; 86901; 87081; 93005; 93306; 97162; 97166; 97530; 97535; 99285; C9113; C9290; J0690; J1644; J2270; J2405; J2704; J3010; J3370; J3490; J7030; J7040; J7120

== ENCOUNTER 2024-06-25 19:02 | Emergency (ER) | payer MEDICARE, MEDICAID ==
[~2024-06-25] VITALS: Ht 154.9 cm; Wt 54.5 kg
[~2024-06-25 19:02] MED LIST changes: +ALEN70TA65 PO; +CYAN500T56 PO; +DOCU-385 PO; +ENOX30SY19 SQ; +FERR325T27 PO; +FOLI-130 PO; -FOLI0.4T6 PO; +INSU100V SQ; +METH2.5T47 PO; +OMEG-12 PO; +PANT-31 PO; +PERCT PO; +PERID15L MM; +PRED-549 PO; +RISP-31 PO; +RIVA2.5T3 PO
[2024-06-25 20:02] VITALS: TEMP 98
[2024-06-26] MEDS: KETOROLAC TROMETHAMINE 30 MG/ML VIAL IVP ONE (00:49)
[2024-06-26] MEDS: FAMOTIDINE 20 MG/2 ML VIAL IVP ONE (00:49)
[2024-06-26] MEDS: SODIUM CHLORIDE 0.9% 1,000 ML IV ONE (00:49)
[2024-06-26 01:09] LABS: EOSINOPHILS % (AUTO) 0.2 % (1.0-6.0); HEMATOCRIT 36.9 % (36-46); LYMPHOCYTES # (AUTO) 0.7 K/uL (1.0-4.8); LYMPHOCYTES % (AUTO) 7.9 % (22.0-44.0); MEAN CORPUSCULAR HEMOGLOBIN 30.5 pg (26.0-34.0); MEAN CORPUSCULAR HGB CONC 32.7 G/dL (31.0-37.0); MEAN CORPUSCULAR VOLUME 93 fL (80-100); MONOCYTES # (AUTO) 1.3 K/uL (0.1-1.0); MONOCYTES % (AUTO) 14.7 % (2.0-9.0); NEUTROPHILS # (AUTO) 6.7 K/uL (1.8-7.7); NEUTROPHILS % (AUTO) 76.2 % (40.0-70.0); PLATELET COUNT (AUTO) 307 K/uL (150-450); RED BLOOD CELL COUNT(AUTO) 3.95 MIL/uL (4.00-5.20); WHITE BLOOD COUNT (AUTO) 8.8 K/uL (4.5-11.0)
[2024-06-26 01:17] LABS: ANION GAP 13 mmol/L (8-16); CALCIUM, TOTAL 9.8 mg/dL (8.8-10.5); CARBON DIOXIDE 22 mmol/L (22-29); CHLORIDE 103 mmol/L (98-107); GLOMERULAR FILTR. RATE CALC > 60 mL/min (>60); GLUCOSE,RANDOM 281 mg/dL (70-110); POTASSIUM 4.2 mmol/L (3.5-5.1); SODIUM SERUM 138 mmol/L (136-145); UREA NITROGEN, BLOOD 23 mg/dL (7-18)
[2024-06-26 01:24] LABS: ALANINE AMINOTRANSFERASE 10 U/L (12-78); ALBUMIN 3.3 g/dL (3.4-5.0); ALKALINE PHOSPHATASE 79 U/L (46-116); ASPARTATE AMINOTRANSFERASE 25 U/L (15-37); BILIRUBIN,TOTAL 0.5 mg/dL (0.1-1.0); LIPASE 32 U/L (16-77); TOTAL PROTEIN, SERUM 8.4 g/dL (6.4-8.2)
[2024-06-26 04:02] LABS: APPEARANCE,URINE CLEAR (CLEAR); BILIRUBIN,URINE NEGATIVE (NEGATIVE); COLOR,URINE YELLOW (YELLOW); GLUCOSE, URINE (UA) >=1000 mg/dL (NEGATIVE); LEUKOCYTE ESTERASE ,URINE NEGATIVE (NEGATIVE); NITRATE,URINE NEGATIVE (NEGATIVE); OCCULT BLOOD,URINE NEGATIVE (NEGATIVE); PROTEIN,URINE 30-70 mg/dL (NEGATIVE); SPECIFIC GRAVITIY, URINE 1.026 (1.003-1.030); UROBILINOGEN,URINE <=1.0 mg/dL (<=1.0)
[2024-06-26 04:22] LABS: BACTERIA,URINE None Seen /HPF (None Seen); RBC,URINE None Seen /HPF (0-2); SQUAMOUS EPITHELIAL CELL,UR Few /LPF (None Seen); WBC,URINE None Seen /HPF (0-5)
[2024-06-26] MEDS ORDERED: DOCUSATE SODIUM 100 MG CAPSULE PO ONE (04:30)
[2024-06-26] MEDS: SODIUM PHOSPHATE,MONO-DIBASIC 133 ML ENEMA PR ONE (04:38)
[2024-06-26 04:39] VITALS: BP 121/72; PULSE 76; RESP 18; O2SAT 98
[2024-06-26] MEDS: DOCUSATE SODIUM 100 MG/10 ML LIQUID UDCUP PO ONE (05:23)
== END 2024-06-26 09:10 ==
LOC: EMS 19:02
DX: K56.41 Fecal impaction (principal); R33.9 Retention of urine, unspecified; E11.9 Type 2 diabetes mellitus without complications; Z79.01 Long term (current) use of anticoagulants; Z79.4 Long term (current) use of insulin; Z79.52 Long term (current) use of systemic steroids; Z79.84 Long term (current) use of oral hypoglycemic drugs; Z87.19 Personal history of other diseases of the digestive system; Z79.899 Other long term (current) drug therapy
CPT/HCPCS: 99285; 80048; 80076; 81001; 83690; 85025; 36415; 51702; 74177; 96374; 96361; 96375; J3490; J1885; J7030